=== PATIENT | female | born 1995 | race Caucasian/White ===

== ENCOUNTER 2018-05-07 22:14 | Outpatient (CLI) | payer MEDICAID, SELFPAY ==
[2018-05-07 22:25] VITALS: BMI 31.7
[2018-05-07 22:36] VITALS: BP 141/76; PULSE 94; RESP 20; TEMP 36.6; O2SAT 97; BMI 33.6
[2018-05-07 22:51] LABS: Microscopic, Urine URINE MICROSCOPIC (MICROSCOPIC)
[2018-05-07 22:53] LABS: Appearance,Urine CLEAR (Clear); Bilirubin,Urine Negative (Negative); Blood, Urine Negative (Negative); Color,Urine YELLOW (Yellow); Glucose,Urine (UA) Negative (Negative); Ketones,Urine Negative (Negative); Leukocyte Esterase,Urine Negative (Negative); Nitrate,Urine Negative (Negative); Protein,Urine Negative (Negative); Urobilinogen,Urine 0.2 EU/dl (0.2)
[2018-05-07 22:58] LABS: Bacteria,Urine 1+ /lpf; Mucus,Urine 1+ /lpf
[2018-05-07 23:03] LABS: Amphetamine/Metha Screen,Urine Negative ng/mL (<1000); Barbiturates Screen,Urine Negative ng/mL (<200); Benzodiazepines Screen,Urine Negative ng/mL (<200); Cannabinoid Screen,Urine Negative ng/mL (<50); Cocaine Screen,Urine Negative ng/mL (<300); Methadone Screen,Urine Negative ng/mL (<300); Opiate Screen,Urine Negative ng/mL (<300); Phencyclidine Screen,Urine Negative ng/mL (<25)
== END 2018-05-07 23:20 | disposition hospice, home (50) ==
LOC: OBOUT 22:16 → OB 22:17
PROVIDERS: Visit Provider Obstetrics & Gynecology
DX: O60.03 Preterm labor without delivery, third trimester (principal); Z3A.41 41 weeks gestation of pregnancy
CPT/HCPCS: 59025; 80305; 81001